=== PATIENT | male | born 1995 | race Caucasian/White ===

== ENCOUNTER 2018-07-01 23:59 | Emergency (ER) | payer SELFPAY ==
[~2018-07-01] VITALS: Ht 165.1 cm; Wt 90.0 kg
[2018-07-02] MEDS ORDERED: ONDANSETRON HCL 4MG/2ML VIAL IV STA (02:50)
[2018-07-02] MEDS ORDERED: MORPHINE SULFATE 4 MG/ML CPJ (NOT FOR IM USE) IV STA (02:50)
[2018-07-02 06:19] VITALS: BP 112/62
== END 2018-07-02 06:22 | disposition home or self-care (01) ==
LOC: ER 23:59
DX: S02.2XXA Fracture of nasal bones, initial encounter for closed fracture (principal); Y08.89XA Assault by other specified means, initial encounter; Y93.01 Activity, walking, marching and hiking; Y92.89 Other specified places as the place of occurrence of the external cause
CPT/HCPCS: 70450; 70486; 96374; 96375; 99284; J2270; J2405; Z7610